=== PATIENT | male | born 1995 | race Caucasian/White ===

== ENCOUNTER → 2018-09-23 | Outpatient (CLI) | payer BC ==
--- NOTE | 2018-09-23 11:21 | RADIOLOGY IMAGING REPORT ---
FACILITY: [facility] PATIENT NAME: Nathaniel Banegas : 1995 MR: [id number] V: [id number] EXAM DATE: ORDERING PHYSICIAN: ERIK HOLMAN TECHNOLOGIST: Location: [facility] Patient: Nathaniel Banegas : 1995 Visit/Account:[id number] Date of Sevice: 09/23/2018 TESTICULAR HISTORY: Trauma to testicle one month ago, feels lump on left, pain and throbbing COMPARISON: None. FINDINGS: Testes: The right testicle measures 4.7 x 2.3 x 3.3 cm. The left testicle measures 5 x 2 x 3.1 cm S ymmetric and unremarkable blood flow documented by color and Duplex Doppler ultrasound. Epididymides: There is a 9 mm cyst head of the epididymis on the left Blood flow is unremarkable in each epididymis by color Doppler ultrasound. Hydrocele: None. Varicocele: None. IMPRESSION: 9 mm cyst head of the epididymis on the left otherwise unremarkable scrotal ultrasound Report Dictated By: Diane Lazo MD at 09/23/2018 11:01 AM Report E-Signed By: Diane Lazo MD at 09/23/2018 11:18 AM WSN:[email or web address]
== END ==
LOC: US 01:43
PROVIDERS: ATTEND Urology
DX: N50.3 Cyst of epididymis (principal)
CPT/HCPCS: 76870